=== PATIENT | female | born 1965 | race Caucasian/White ===

== ENCOUNTER 2018-08-24 20:28 | Outpatient (REF) | payer OTHER, SELFPAY | END 2018-08-24 20:48 | LOC: NCHCN 20:28 | PROVIDERS: PCP Physician Assistant Medical; Visit Provider Specialist/Technologist Athletic Trainer | DX: J02.9 Acute pharyngitis, unspecified (principal) | CPT/HCPCS: 87070 ==

== ENCOUNTER 2019-03-01 09:39 | Outpatient (REF) | payer OTHER, SELFPAY ==
[2019-03-01 21:03] LABS: Cholesterol 241 mg/dL (50-200); Glucose 103 mg/dL (70-100); HDL Cholesterol 69 mg/dL (40-60); LDL CHOLESTEROL 148 mg/dL (<100); TSH 4.79 uIU/mL (0.358-3.74); Triglyceride 107 mg/dL (30-150)
== END 2019-03-01 09:59 ==
LOC: NCHCN 09:39
PROVIDERS: PCP Physician Assistant Medical; Visit Provider Nurse Practitioner Family
DX: F32.9 Major depressive disorder, single episode, unspecified (principal); R73.9 Hyperglycemia, unspecified; E78.5 Hyperlipidemia, unspecified
CPT/HCPCS: 80061; 82947; 83721; 84443

== ENCOUNTER 2019-12-13 01:24 | Outpatient (CLI) | payer OTHER, SELFPAY ==
--- NOTE | 2019-12-13 16:05 | DI.MAMMO_ITS ---
EXAM: MG MAMMO SCREENING CLINICAL HISTORY: SCREENING, [facility] Z00.00 TECHNIQUE: Bilateral full field digital CC and MLO mammographic images were obtained with 3D tomosyn thesis and utilizing computer aided detection (CAD). COMPARISON: Available for comparison. FINDINGS: Masses/Architectural Distortion: None seen. There is a stable nodule seen in the upper central left b reast. Microcalcifications: No suspicious pleomorphic-type are seen. Skin Thickening/Nipple Retraction: None. IMPRESSION: 1. No significant interval change with no specific features of malignancy noted. 2. Unless there is more urgent need, screening mammography is recommended, as per [employer] guidelines. ACR BI-RAD Category- 1 Negative Breast Density - Category A - Almost entirely fatty A negative radiographic report should not delay biopsy if a dominant or clinically suspicious mass is present. Up to ten percent of cancers are not identified on mammography. A negative report may reinforce clinical impression. Adenosis and dense breasts may obscure an underlying neoplasm. False positive reports average 6 to 10%. Patient will receive a letter notifying them of these results.
== END 2019-12-13 01:44 ==
PROVIDERS: PCP Nurse Practitioner Family; Visit Provider Nurse Practitioner Family
DX: Z00.00 Encounter for general adult medical examination without abnormal findings (principal); Z12.31 Encounter for screening mammogram for malignant neoplasm of breast
CPT/HCPCS: 77063; 77067

== ENCOUNTER 2020-02-14 08:33 | Outpatient (REF) | payer OTHER, SELFPAY ==
[2020-02-14 19:20] LABS: Anion Gap 10.6 mmol/L (3-11); BUN 15 mg/dL (7-18); CO2 25.4 mmol/L (21.0-32.0); CREATININE 0.86 mg/dL (0.55-1.02); Calcium 8.9 mg/dL (8.5-10.1); Chloride 107 mmol/L (98-107); Glucose 134 mg/dL (74-106); HDL Cholesterol 66 mg/dL (40-60); LDL CHOLESTEROL 160 mg/dL (<100); Potassium 4.3 mmol/L (3.5-5.1); Sodium 143 mmol/L (136-145); TSH (W/Ref FT4) 4.94 uIU/mL (0.36-3.74)
[2020-02-14 19:24] LABS: Hemoglobin A1C 5.9 % (3.8-5.6)
== END 2020-02-14 08:53 ==
LOC: NCHCN 08:33
PROVIDERS: PCP Nurse Practitioner Family; Visit Provider Nurse Practitioner Family
DX: Z00.00 Encounter for general adult medical examination without abnormal findings (principal); E78.5 Hyperlipidemia, unspecified; R94.6 Abnormal results of thyroid function studies
CPT/HCPCS: 80048; 83721; 83036; 83718; 84439; 84443

== ENCOUNTER 2020-03-29 08:54 | Outpatient (REF) | payer OTHER, SELFPAY ==
[2020-03-29 20:07] LABS: TSH 3.85 uIU/mL (0.36-3.74)
== END 2020-03-29 09:14 ==
LOC: NCHCN 08:54
PROVIDERS: PCP Nurse Practitioner Family; Visit Provider Nurse Practitioner Family
DX: R94.6 Abnormal results of thyroid function studies (principal)
CPT/HCPCS: 84443

== ENCOUNTER 2022-08-11 21:07 | Outpatient (REF) | payer OTHER, SELFPAY | END 2022-08-11 21:08 | disposition home or self-care (01) | LOC: LBN 21:07 | PROVIDERS: PCP Nurse Practitioner Family; Visit Provider Nurse Practitioner Family | DX: R73.03 Prediabetes (principal) | CPT/HCPCS: 87077; 87070; 87186; 87205 ==

== ENCOUNTER 2025-05-14 18:04 | Outpatient (REF) | payer OTHER, SELFPAY ==
--- NOTE | 2025-05-14 16:30 | PAPFT_PTH ---
PATIENT: Gay Shrestha LOC: [facility] U#:[id number] AGE/SX: 59/F ROOM: RE05/14/[address]: Gaal Combs : 1965 BED: DIS: 05/14/2025 SPEC #: [id number] RECD: 05/15/25 13:09 STATUS: MARTINA REQ #: [id number] TOM: 05/14/25 16:[address]: Gala Combs [facility]PT[facility] Cytology RECD BY: Peggy Hudson ENTERED: 05/15/25 13:09 SP TYPE: PAPFT OTHR DR: Unknown,Unknown Tissues: 1 - CX/ENDOCX FOR PAP SMEARS Procedures: PAP THIN PREP/[facility] Screening HPV DNA PROBE Comments: [id number] (HPV 16 & 18/45)
[2025-05-14 19:46] LABS: Hemoglobin A1C 5.8 % (<5.7)
[2025-05-14 20:15] LABS: ALT 44 U/L (14-59); AST 31 U/L (15-37); Albumin 3.5 g/dL (3.4-5.0); Alkaline Phosphatase 87 U/L (46-116); Anion Gap 7.0 mmol/L (3-11); BUN 12 mg/dL (7-18); Bilirubin, Total 0.4 mg/dL (0.2-1.0); CO2 31.0 mmol/L (21.0-32.0); Calcium 9.1 mg/dL (8.5-10.1); Calculated LDL 132 mg/dL (<100); Chloride 103 mmol/L (98-107); Cholesterol 221 mg/dL (<200); Estimated GFR 102.06 (mL/min/1.73m2); Glucose 98 mg/dL (74-106); HDL Cholesterol 72 mg/dL (>or=50); Potassium 3.7 mmol/L (3.5-5.1); Sodium 141 mmol/L (136-145); TSH 4.28 uIU/mL (0.36-3.74); Total Protein 7.1 g/dL (6.4-8.2); Triglyceride 86 mg/dL (<150); Vitamin D 25 Total 35 ng/mL (30-100)
== END 2025-05-14 18:05 | disposition home or self-care (01) ==
LOC: NCHCN 18:04
PROVIDERS: Visit Provider Nurse Practitioner Family
DX: E78.5 Hyperlipidemia, unspecified (principal); R73.03 Prediabetes; R94.6 Abnormal results of thyroid function studies
CPT/HCPCS: 80053; 80061; 82306; 88142; 83036; 84439; 84443; 87624

== ENCOUNTER 2025-06-22 03:42 | Outpatient (CLI) | payer OTHER, SELFPAY ==
--- NOTE | 2025-06-22 | DI.US_ITS ---
Exam(s) US SOFT TISSUE HEAD OR NECK EXAM: US SOFT TISSUE HEAD OR NECK CLINICAL HISTORY: PALPABLE MASS NECK R22.1 10X5 MM LT LATERAL NECK. TECHNIQUE: Ultrasound was performed using standard protocol. COMPARISON: US LEFT BREAST ULTRASOUND {[id number]} from 01/03/2016 FINDINGS: Dedicated ultrasound examination of the area of concern on the posterior left side of the neck was performed. There is a well-defined oval lesion at this level measuring 1.5 x 1.0 cm, this corresponding to her palpable finding. This is well-defined and is partially solid and partially cystic with slightly increased through transmission. There is no channel communication between this finding and the skin to suggest that it is an obvious sebaceous cyst. Does not have typical appearance of a lymph node. Adjacent to this finding is a smaller similar finding measuring 5 x 4 mm which is well-defined but more solid than cystic. IMPRESSION: There are 2 adjacent findings in the posterior aspect of the neck as described above. The larger 1 is what is being felt by the patient. It is well-defined and partially solid partially cystic. It does not have the appearance of a typical lymph node. Given that the patient feels this is increasing in size I feel would be prudent to perform ultrasound-guided sampling of this finding. DATA REPOSITORY:
--- NOTE | 2025-06-22 07:55 | DI.MAMMO_ITS ---
Exam(s) MAMMO SCREENING EXAM: MAMMO SCREENING CLINICAL HISTORY: SCREENING MAMMO Z12.31. TECHNIQUE: Bilateral full field digital CC and MLO mammographic images were obtained with 3D tomosynthesis and utilizing computer aided detection (CAD). COMPARISON: Prior mammograms were reviewed. FINDINGS: There are no CAD designations. There are no new right breast findings. Stable benign-appearing nodule in the central left breast is unchanged from prior mammograms. For, there also 2 additional asymmetric densities-possible nodules seen in the left breast on the MLO view, these measuring approximately 6-7 mm size and located approximately 5 cm in from the nipple. Further imaging recommended There are no malignant-appearing microcalcification groups is region or elsewhere in either breast. There is no significant architectural distortion nor skin thickening-retraction. IMPRESSION: 1. No radiographic evidence of malignancy in the right breast. 2. 3 nodular densities in left breast, 1 of which is stable and the other 2 appearing new. Five compression views and ultrasound recommended. BI-RADS Category 0 - Incomplete: Need additional imaging evaluation Breast Density - Category B - There are scattered areas of fibroglandular density. Breast density Category C or D implies that the patient has dense breast tissue. Dense breast tissue can make it harder to find cancer on a mammogram. Dense breast tissue is also associated with an increased risk of breast cancer. This information about the result of the mammogram report was provided to the patient to raise their awareness. Use this report when you speak with the patient about their risks for breast cancer, which includes their family history. At that time, you may recommend additional screening tests (Ultrasound or MRI) as these tests may add significant information. A negative radiographic report should not delay biopsy if a dominant or clinically suspicious mass is present. Up to ten percent of cancers are not identified on mammography. A negative report may reinforce clinical impression. Adenosis and dense breasts may obscure an underlying neoplasm. False positive reports average 6 to 10%. Patient will receive a letter notifying them of these results.
== END 2025-06-22 04:02 ==
PROVIDERS: Visit Provider Nurse Practitioner Family
DX: R22.1 Localized swelling, mass and lump, neck (principal); Z12.31 Encounter for screening mammogram for malignant neoplasm of breast; N63.21 Unspecified lump in the left breast, upper outer quadrant
CPT/HCPCS: 76536; 77063; 77067

== ENCOUNTER 2025-07-06 11:41 | Outpatient (REF) | payer OTHER, SELFPAY ==
--- NOTE | 2025-07-06 11:00 | SKI_PTH ---
PATIENT: Gay Shrestha LOC: [facility] U#:[id number] AGE/SX: 59/F ROOM: RE07/06/[address]: Shea Macdonald MD : 1965 BED: DIS: 07/06/2025 SPEC #: [id number] RECD: 07/06/25 13:09 STATUS: MARTINA ARELLANO #: [id number] TOM: 07/06/25 11:[address]: Shea Macdonald DEPT: Surgical Specimen RECD BY: Peggy Hudson ENTERED: 07/06/25 13:10 SP TYPE: JETHRO SINGLETON DR: Gala Combs Tissues: 1 - SKIN BIOPSY(SHAVE/PUNCH) Procedures: GROSS AND MICRO LEVEL 4 IMMUNOPEROXIDASE STAIN Single Probe In Situ Hybridization Comments: [id number]
== END 2025-07-06 11:42 | disposition home or self-care (01) ==
LOC: LBN 11:41
PROVIDERS: PCP Nurse Practitioner Family; Referring Provider Surgery; Visit Provider Surgery
DX: R59.9 Enlarged lymph nodes, unspecified (principal)
CPT/HCPCS: 88305; 88368; 88361

== ENCOUNTER 2025-07-10 02:12 | Outpatient (CLI) | payer OTHER, SELFPAY ==
--- NOTE | 2025-07-10 | DI.US_ITS ---
Exam(s) MG MAMMO SCREEN CALL BACK UNI US BREAST LT COMPLETE EXAM: MG MAMMO SCREEN CALL BACK UNI LEFT AND COMPLETE LEFT BREAST ULTRASOUND CLINICAL HISTORY: 3 NODULAR DENSITIES LEFT BREAST 1 STABLE 2 APPEARING NEW R92.8 ABNL MAMMO. TECHNIQUE: Unilateral BREAST spot mammographic images obtained with 3D tomosynthesisand utilizing computer aided detection (CAD). . Complete LEFT breast Ultrasound was also performed, including all 4 quadrants, the retroareolar region, and the ipsilateral axilla. COMPARISON: Prior mammograms were reviewed. This additional imaging was performed due to findings described on the recent screening mammogram of 06/22/2025. FINDINGS: DIAGNOSTIC MAMMOGRAM: Additional mammographic views performed todaydoes not dissipate these benign- appearing small nodules in the anterior aspect of the left breast, 2 of which are new in 1 of which is not new. We proceeded with complete left breast ultrasound COMPLETE LEFT BREAST ULTRASOUND: Ultrasound performed today reveals no evidence of solid or significant cystic lesions in all 4 quadrants of the left breast, this implying that the 3 nodular densities are most probably benign intramammary lymph nodes.. Scanning of the ipsilateral axilla reveals no significant adenopathy. IMPRESSION: 1. The 3 small benign-appearing nodules in anteriorly in the left breast are not visualized on ultrasound examination and therefore probably represent benign intramammary lymph nodes. 2. Appropriate follow-up as discussed by myself with the patient today is repeat left breast imaging including repeat mammogram and ultrasound in 6 months, with earlier imaging if a self detected breast change is noted. The patient was informed of these findings and recommendations by myself prior to leaving the department today. BI-RADS Category 3 - 6 month - Probably Benign Finding: Recommend follow-up mammography in 6 months Breast Density - Category B - There are scattered areas of fibroglandular density. Breast density Category C or D implies that the patient has dense breast tissue. Dense breast tissue can make it harder to find cancer on a mammogram. Dense breast tissue is also associated with an increased risk of breast cancer. This information about the result of the mammogram report was provided to the patient to raise their awareness. Use this report when you speak with the patient about their risks for breast cancer, which includes their family history. At that time, you may recommend additional screening tests (Ultrasound or MRI) as these tests may add significant information. A negative radiographic report should not delay biopsy if a dominant or clinically suspicious mass is present. Up to ten percent of cancers are not identified on mammography. A negative report may reinforce clinical impression. Adenosis and dense breasts may obscure an underlying neoplasm. False positive reports average 6 to 10%. Patient will receive a letter notifying them of these results.
== END 2025-07-10 02:32 ==
LOC: DI 02:12
PROVIDERS: PCP Nurse Practitioner Family; Visit Provider Nurse Practitioner Family
DX: Z12.31 Encounter for screening mammogram for malignant neoplasm of breast (principal); R92.8 Other abnormal and inconclusive findings on diagnostic imaging of breast
CPT/HCPCS: 76642; 77063; 77067

== ENCOUNTER 2025-07-12 04:16 | Outpatient (CLI) | payer OTHER, SELFPAY ==
--- NOTE | 2025-07-12 | DI.DEXA_ITS ---
Exam(s) XR DEXA BONE DENSITY W/WO DANAY EXAM: XR DEXA BONE DENSITY W/WO DANAY CLINICAL HISTORY: ASYMPTOMATIC MENOPAUSAL STATE Z78.0 TECHNIQUE: [employer] C densitometer analysis of left hip, lumbar spine and left forearm. Lateral survey image of the thoracic and lumbar spine. COMPARISON: No exams were available for comparison FINDINGS: Lateral view of the thoracic and lumbar spine shows no evidence of compression fractures. Bone mineral density measurements of the lumbar spine correspond to a total T- score of -1.7, in the osteopenic range. Bone mineral density measurements of the left hip correspond to a total T-score of 0.1. The femoral neck T-score is 0.4, in the normal range. Theleft forearm bone mineral density measurements correspond to a T-score of the distal 3rd of -1.2, in the mildly osteopenic range. IMPRESSION: Osteopenia lumbar spine and forearm. Normal bone density of the hip.
== END 2025-07-12 04:36 ==
LOC: DI 04:16
PROVIDERS: PCP Nurse Practitioner Family; Visit Provider Nurse Practitioner Family
DX: M81.0 Age-related osteoporosis without current pathological fracture (principal); Z78.0 Asymptomatic menopausal state
CPT/HCPCS: 77080

== ENCOUNTER 2025-09-04 19:09 | Outpatient (REF) | payer OTHER, SELFPAY ==
[2025-09-06 12:03] LABS: HSV 1 DNA Result Negative (Negative); HSV 2 DNA Result Negative (Negative); Varicella Zoster DNA Result Negative (Negative)
== END 2025-09-04 19:10 | disposition home or self-care (01) ==
LOC: LBN 19:09
PROVIDERS: PCP Nurse Practitioner Family; Visit Provider Nurse Practitioner Family
DX: R21 Rash and other nonspecific skin eruption (principal)
CPT/HCPCS: 87529; 87798